=== PATIENT | male | born 1970 | race Caucasian/White ===

== ENCOUNTER 2022-04-18 13:03 | Outpatient (CLI) | payer OTHER ==
--- NOTE | 2022-04-18 15:51 | XRAY Report ---
PROCEDURE: Foot 3 View BILAT INDICATIONS: PX TECHNIQUE: 3 views of each foot were acquired. COMPARISON: None FINDINGS: Bones: No acute fractures or dislocations. No suspicious bony lesions. Mild scattered degenerative changes at the interphalangeal joints of the toes. Small right plantar calcaneal enthesophyte. No fo gali osseous erosion is seen. Soft tissues: No suspicious soft tissue calcification. IMPRESSION: Mild osteoarthrosis. No acute osseous abnormality. If symptoms persist or there is continued clinical concern, further evaluation with MRI or CT may be helpful. Reviewed by: Odilon Garcia MD on 04/18/2022 3:50 PM PST Approved by: Odilon Garcia MD on 04/18/2022 3:50 PM PST Station ID: [id number]
--- NOTE | 2022-04-18 15:57 | XRAY Report ---
PROCEDURE: Hand 3 View BILAT INDICATIONS: PX TECHNIQUE: 3 views of the both hands acquired. COMPARISON: Right hand radiographs 03/27/2012 FINDINGS: Bones: No acute fractures or dislocations. No suspicious bony lesions. No focal osseous erosion. S cattered joint space narrowing is seen throughout the interphalangeal joints of the fingers. Mild deg enerative changes of the first carpometacarpal joints bilaterally. Soft tissues: No suspicious soft tissue calcifications. IMPRESSION: Mild bilateral osteoarthrosis, most prominent at the first carpometacarpal joints. No radiographic si gns of an inflammatory arthritis. Reviewed by: Odilon Garcia MD on 04/18/2022 3:55 PM [facility] Approved by: Odilon Garcia MD on 04/18/2022 3:55 PM [facility] Station ID: [id number]
== END 2022-04-18 13:04 | disposition home or self-care (01) ==
LOC: DI 13:03
PROVIDERS: ATTEND Nurse Practitioner Family
DX: M18.0 Bilateral primary osteoarthritis of first carpometacarpal joints (principal); M19.041 Primary osteoarthritis, right hand; M19.042 Primary osteoarthritis, left hand; M19.071 Primary osteoarthritis, right ankle and foot; M19.072 Primary osteoarthritis, left ankle and foot

== ENCOUNTER 2022-06-29 15:53 | Outpatient (CLI) | payer OTHER ==
--- NOTE | 2022-06-29 16:33 | XRAY Report ---
PROCEDURE: Wrist 3 View RT INDICATIONS: PAIN IN RIGHT WRIST TECHNIQUE: 3 views of the wrist were acquired. COMPARISON: None FINDINGS: Bones: No fractures or dislocations. No suspicious bony lesions. Scaphoid view: Negative Soft tissues: No suspicious soft tissue calcifications. IMPRESSION: No acute fracture. No osseous lesion. If symptoms and/or clinical suspicion for pathology continue, f urther assessment with repeat plain films, or advanced imaging (e.g., CT, MRI, or bone scan) is recom mended for further assessment. Reviewed by: Ilene Gill MD on 06/29/2022 4:32 PM PST Approved by: Ilene Gill MD on 06/29/2022 4:32 PM PST Station ID: [id number]
== END 2022-06-29 15:54 | disposition home or self-care (01) ==
LOC: DI 15:53
PROVIDERS: ATTEND Nurse Practitioner Family
DX: M25.531 Pain in right wrist (principal)